=== PATIENT | female | born 1985 | race Caucasian/White ===

== ENCOUNTER → 2019-03-18 | Emergency (ER) | payer OTHER | END | disposition left against medical advice (07) | LOC: ER 16:04 | DX: Z53.20 Procedure and treatment not carried out because of patient's decision for unspecified reasons (principal) ==

== ENCOUNTER 2019-11-11 07:06 | Day surgery (SDC) | payer OTHER ==
[~2019-11-11 07:06] MED LIST: CATAFLAN PO; NORFLEX PO; PREVAC PO; SYNTHROID50 MCG PO
== END 2019-11-11 15:38 | disposition home or self-care (01) ==
LOC: CIR.AMB 07:06 → ADM 08:00 → CIR.AMB 08:00
PROVIDERS: ATTEND Surgery
DX: D24.1 Benign neoplasm of right breast (principal); D24.2 Benign neoplasm of left breast; Z20.828 Contact with and (suspected) exposure to other viral communicable diseases

== ENCOUNTER 2019-11-17 08:32 | Outpatient (CLI) | payer OTHER | END 2019-11-17 12:51 | disposition home or self-care (01) | LOC: NUCLEAR 08:32 | PROVIDERS: ATTEND Surgery | DX: I82.622 Acute embolism and thrombosis of deep veins of left upper extremity (principal) ==

== ENCOUNTER 2019-11-21 13:20 | Outpatient (CLI) | payer OTHER | END 2019-11-21 13:43 | disposition home or self-care (01) | LOC: NUCLEAR 13:20 | PROVIDERS: ATTEND Surgery | DX: I82.403 Acute embolism and thrombosis of unspecified deep veins of lower extremity, bilateral (principal) ==

== ENCOUNTER 2019-12-28 14:10 | Emergency (ER) | payer OTHER ==
[~2019-12-28] VITALS: Ht 157.5 cm; Wt 59.9 kg
== END 2019-12-28 16:09 | disposition home or self-care (01) ==
LOC: ER 14:10
DX: N76.4 Abscess of vulva (principal); Z03.818 Encounter for observation for suspected exposure to other biological agents ruled out

== ENCOUNTER 2020-03-01 13:49 | Outpatient (CLI) | payer OTHER | END 2020-03-01 14:15 | disposition HB | LOC: SONOGRAMA 13:49 | PROVIDERS: ATTEND Obstetrics & Gynecology | DX: D25.1 Intramural leiomyoma of uterus (principal); N90.7 Vulvar cyst ==

== ENCOUNTER 2020-04-24 10:12 | Outpatient (CLI) | payer OTHER | END 2020-04-24 10:28 | disposition home or self-care (01) | LOC: SONOGRAMA 10:12 | PROVIDERS: ATTEND Obstetrics & Gynecology | DX: C75.0 Malignant neoplasm of parathyroid gland (principal); N75.8 Other diseases of Bartholin's gland ==